=== PATIENT | female | born 1970 | race Caucasian/White ===

== ENCOUNTER 2018-01-02 19:20 | Emergency (ER) | payer OTHER ==
[~2018-01-02] VITALS: Ht 162.6 cm; Wt 86.6 kg
[~2018-01-02 19:20] MED LIST: ALBU5SOL6 PO; ALBU8.5H5 INH; ARIP10TA33 PO; DULO20CA45 PO; DULO60CA7 PO; GABA-826 PO; HYDR-3237 PO; HYDR12.53 PO; HYDR25TA6 PO; HYOS0.1281 SL; LORA10TA3 PO; OMEP20CA9 PO; OXYC-302 PO; POTA20PA PO; PROP10TA PO; PROP60TA PO; PSEU30TA24 PO; SUMA50TA3 PO; TOPI50TA35 PO; TRAM50TA2 PO
[2018-01-02 19:22] VITALS: BP 147/95
== END 2018-01-02 20:02 | disposition home or self-care (01) ==
LOC: ED 19:50
DX: S00.412A Abrasion of left ear, initial encounter (principal); I10 Essential (primary) hypertension; Z90.49 Acquired absence of other specified parts of digestive tract; Z90.710 Acquired absence of both cervix and uterus; X58.XXXA Exposure to other specified factors, initial encounter; Y93.89 Activity, other specified; Y99.8 Other external cause status; Y92.89 Other specified places as the place of occurrence of the external cause
CPT/HCPCS: 99281; 99283